=== PATIENT | female | born 1980 | race Hispanic/Latino ===

== ENCOUNTER → 2023-08-04 09:11 | Outpatient (REF) | payer OTHER, SELFPAY ==
[2023-08-04 10:23] LABS: ALT (SGPT) 18 U/L (0-35); AST (SGOT) 16 U/L (14-36); Albumin 3.6 g/dl (3.5-5.0); Alkaline Phosphatase 87 U/L (38-126); Blood Urea Nitrogen 10 mg/dl (7-17); Calcium 9.6 mg/dl (8.4-10.2); Carbon Dioxide 28 mmol/L (22-30); Chloride 98 mmol/L (98-107); Glucose 200 mg/dl (70-99); Potassium 4.2 mmol/L (3.5-5.1); Sodium 134 mmol/L (135-145); Total Bilirubin 0.8 mg/dl (0.2-1.3); eGFR > 60.00
[2023-08-04 11:10] LABS: Glycohemoglobin (HgbA1c) 9.5 % (4.0-5.6)
[2023-08-04 11:32] LABS: Microalbumin, Random Urine 2.7 mg/dl (0.6-1.7); Microalbumin/creatinine Ratio 23.1 mg/g
== END ==
LOC: CLINIC 09:11
PROVIDERS: ATTENDING PHYSICIAN Nurse Practitioner Adult Health
DX: E11.9 Type 2 diabetes mellitus without complications (principal); R80.9 Proteinuria, unspecified
CPT/HCPCS: 36415; 80053; 82043; 82570; 83036

== ENCOUNTER → 2023-12-15 10:16 | Outpatient (REF) | payer OTHER, SELFPAY ==
[2023-12-15 12:10] LABS: ALT (SGPT) 19 U/L (0-35); AST (SGOT) 20 U/L (14-36); Albumin 4.6 g/dl (3.5-5.0); Alkaline Phosphatase 118 U/L (38-126); Blood Urea Nitrogen 14 mg/dl (7-17); Calcium 10.4 mg/dl (8.4-10.2); Carbon Dioxide 25 mmol/L (22-30); Chloride 100 mmol/L (98-107); Glucose 172 mg/dl (70-99); Potassium 4.6 mmol/L (3.5-5.1); Sodium 138 mmol/L (135-145); Total Bilirubin 0.8 mg/dl (0.2-1.3); Total Protein 7.7 g/dl (6.3-8.2); eGFR > 60.00
[2023-12-15 14:02] LABS: Glycohemoglobin (HgbA1c) 10.3 % (4.0-5.6)
== END ==
LOC: CLINIC 10:16
PROVIDERS: ATTENDING PHYSICIAN Nurse Practitioner Adult Health
DX: E11.9 Type 2 diabetes mellitus without complications (principal)
CPT/HCPCS: 80053; 83036

== ENCOUNTER → 2024-03-22 10:30 | Outpatient (REF) | payer OTHER, SELFPAY ==
[2024-03-22 12:13] LABS: ALT (SGPT) 17 U/L (0-35); AST (SGOT) 16 U/L (14-36); Albumin 4.3 g/dl (3.5-5.0); Alkaline Phosphatase 66 U/L (38-126); Blood Urea Nitrogen 15 mg/dl (7-17); Carbon Dioxide 26 mmol/L (22-30); Chloride 102 mmol/L (98-107); Glucose 109 mg/dl (70-99); Potassium 4.5 mmol/L (3.5-5.1); Sodium 140 mmol/L (135-145); Total Bilirubin 0.6 mg/dl (0.2-1.3); Total Protein 6.9 g/dl (6.3-8.2); eGFR > 60.00
[2024-03-22 13:13] LABS: Glycohemoglobin (HgbA1c) 7.4 % (4.0-5.6)
== END ==
LOC: REG 10:30
PROVIDERS: ATTENDING PHYSICIAN Nurse Practitioner Adult Health
DX: E11.9 Type 2 diabetes mellitus without complications (principal)
CPT/HCPCS: 36415; 80053; 83036

== ENCOUNTER 2024-05-06 17:06 | Outpatient (RCR) | payer OTHER, SELFPAY | END 2024-05-06 23:59 | disposition home or self-care (01) | LOC: RPT 17:06 | PROVIDERS: ATTENDING PHYSICIAN Specialist; FAMILY PHYSICIAN Nurse Practitioner Adult Health | DX: M75.01 Adhesive capsulitis of right shoulder (principal); Z73.6 Limitation of activities due to disability | CPT/HCPCS: 97010; 97110; 97140; 97162 ==

== ENCOUNTER 2024-06-05 16:01 | Outpatient (RCR) | payer OTHER, SELFPAY | END 2024-06-05 23:59 | disposition home or self-care (01) | LOC: RPT 16:01 | PROVIDERS: ATTENDING PHYSICIAN Specialist; FAMILY PHYSICIAN Nurse Practitioner Adult Health | DX: M75.01 Adhesive capsulitis of right shoulder (principal); Z73.6 Limitation of activities due to disability | CPT/HCPCS: 97110; 97140 ==

== ENCOUNTER 2024-06-26 15:58 | Outpatient (RCR) | payer OTHER, SELFPAY | END 2024-06-26 23:59 | disposition home or self-care (01) | LOC: RPT 15:58 | PROVIDERS: ATTENDING PHYSICIAN Specialist; FAMILY PHYSICIAN Nurse Practitioner Adult Health | DX: M75.01 Adhesive capsulitis of right shoulder (principal); Z73.6 Limitation of activities due to disability | CPT/HCPCS: 97010; 97110 ==

== ENCOUNTER → 2024-08-02 09:56 | Outpatient (REF) | payer OTHER, SELFPAY ==
[2024-08-02 11:13] LABS: Glycohemoglobin (HgbA1c) 7.6 % (4.0-5.6)
[2024-08-02 12:00] LABS: ALT (SGPT) 18 U/L (0-35); AST (SGOT) 17 U/L (14-36); Albumin 4.8 g/dl (3.5-5.0); Alkaline Phosphatase 96 U/L (38-126); Blood Urea Nitrogen 12 mg/dl (7-17); Calcium 9.8 mg/dl (8.4-10.2); Carbon Dioxide 26 mmol/L (22-30); Chloride 102 mmol/L (98-107); Glucose 128 mg/dl (70-99); HDL Cholesterol 105 mg/dl; LDL Cholesterol, Calculated 150 mg/dl; Potassium 4.6 mmol/L (3.5-5.1); Sodium 136 mmol/L (135-145); Total Bilirubin 0.9 mg/dl (0.2-1.3); Total Cholesterol 274 mg/dl (50-199); Triglyceride 97 mg/dl (10-149); Very Low Density Lipoprotein 19 mg/dl (0-30); eGFR > 60.00
[2024-08-02 12:12] LABS: Microalbumin, Random Urine 2.9 mg/dl (0.6-1.7); Microalbumin/creatinine Ratio 52.1 mg/g
== END ==
LOC: CLINIC 09:56
PROVIDERS: ATTENDING PHYSICIAN Nurse Practitioner Adult Health
DX: E11.9 Type 2 diabetes mellitus without complications (principal); R80.9 Proteinuria, unspecified
CPT/HCPCS: 36415; 80053; 80061; 82043; 82570; 83036

== ENCOUNTER → 2024-11-01 09:18 | Outpatient (REF) | payer OTHER, SELFPAY ==
[2024-11-01 10:29] LABS: ALT (SGPT) 17 U/L (0-35); AST (SGOT) 15 U/L (14-36); Albumin 4.3 g/dl (3.5-5.0); Alkaline Phosphatase 74 U/L (38-126); Blood Urea Nitrogen 16 mg/dl (7-17); Carbon Dioxide 27 mmol/L (22-30); Chloride 106 mmol/L (98-107); Glucose 151 mg/dl (70-99); HDL Cholesterol 80 mg/dl; LDL Cholesterol, Calculated 74 mg/dl; Microalbumin, Random Urine 0.6 mg/dl (0.6-1.7); Microalbumin/creatinine Ratio 10.7 mg/g; Potassium 4.5 mmol/L (3.5-5.1); Sodium 140 mmol/L (135-145); Total Bilirubin 0.6 mg/dl (0.2-1.3); Total Cholesterol 170 mg/dl (50-199); Total Protein 7.4 g/dl (6.3-8.2); Triglyceride 84 mg/dl (10-149); Very Low Density Lipoprotein 16 mg/dl (0-30); eGFR > 60.00
[2024-11-02 12:25] LABS: Glycohemoglobin (HgbA1c) 7.7 % (4.0-5.6)
== END ==
LOC: REG 09:18
PROVIDERS: ATTENDING PHYSICIAN Nurse Practitioner Adult Health
DX: E11.9 Type 2 diabetes mellitus without complications (principal); R80.9 Proteinuria, unspecified; E78.00 Pure hypercholesterolemia, unspecified
CPT/HCPCS: 80053; 80061; 82043; 82570; 83036

== ENCOUNTER → 2025-03-20 13:40 | Outpatient (REF) | payer OTHER, SELFPAY ==
[2025-03-20 14:44] LABS: ALT (SGPT) 19 U/L (0-35); AST (SGOT) 16 U/L (14-36); Albumin 4.7 g/dl (3.5-5.0); Alkaline Phosphatase 92 U/L (38-126); Blood Urea Nitrogen 10 mg/dl (7-17); Calcium 10.4 mg/dl (8.4-10.2); Carbon Dioxide 28 mmol/L (22-30); Chloride 102 mmol/L (98-107); Glucose 147 mg/dl (70-99); Potassium 5.0 mmol/L (3.5-5.1); Sodium 136 mmol/L (135-145); Total Protein 8.1 g/dl (6.3-8.2); eGFR > 60.00
[2025-03-21 08:54] LABS: Glycohemoglobin (HgbA1c) 7.8 % (4.0-5.6)
== END ==
LOC: REG 13:40
PROVIDERS: ATTENDING PHYSICIAN Nurse Practitioner Adult Health
DX: E11.9 Type 2 diabetes mellitus without complications (principal)
CPT/HCPCS: 36415; 80053; 83036

== ENCOUNTER 2025-04-19 16:07 | Emergency (ER) | payer OTHER, SELFPAY ==
[2025-04-19 16:09] VITALS: BP 118/78
--- NOTE | 2025-04-19 17:38 | ED.GENMED ---
History of Present Illness
General
Chief Complaint: Fall
Source: patient
Exam Limitations: none
Time Seen by Provider: 04/19/25 17:25
History of Present Illness
History of Present Illness:
44yoF with a history of type 2 diabetes, hypertension, hyperlipidemia presenting for evaluation of a left ankle injury. Patient fell down the basement steps 1 week ago. She has been having persistent pain and swelling in the left ankle. She has
been walking on the ankle throughout the week but decided to come to the ED because her symptoms were not getting better. No paresthesias.
Phy Exam
General Physical Exam
General Presentation: well appearing and no apparent distress
General age: appears stated age
General Skin: warm and dry
General Habitus: normal
General Mental: alert
ENT Exam
ENT Exam: normocephalic
Pulmonary Exam
Pulmonary Exam: no respiratory distress
Neurological Exam
Neurological Exam: alert
Dayanna Coma Scale
Eye Opening: Spontaneous
Verbal Response: Oriented
Motor Response: Obeys Commands
GCS Total Score: 15
Musculoskeletal Exam
Musculoskeletal Exam: other (L ankle: Diffuse swelling noted to ankle and dorsum of foot with dependent ecchymosis. + Tenderness to lateral malleolus. ROM decreased 2/2 pain. No tenderness to proximal fibula. 2+ DP pulse and sensation intact. )
Skin Exam
Skin Exam: warm/dry
Psychiatric Exam
Psychiatric Exam: normal mood/affect
Course
Orders/Labs/Results
Orders:
Orders
04/19/25 16:15
CR Ankle - Left Min 3 Views Urgent
Comment:
Reason For Exam: pain injury
Foot, Left 3 View [CR Foot - Left Min 3 Views] Urgent
Comment:
Reason For Exam: pain injury
04/19/25 17:25
Splints/Slings/Crut- Treatment ONCE
Location: Left
Type of Splint: Short Leg
04/19/25 17:36
Crutches-Treatment ONCE
Vital Signs
Initial and Last Documented VS:
Initial Vital Signs
Temp Pulse Resp BP Pulse Ox
98.2 F 78 16 118/78 100
04/19/25 16:09 04/19/25 16:09 04/19/25 16:09 04/19/25 16:09 04/19/25 16:09
Last Documented Vital Signs
Temp Pulse Resp BP Pulse Ox
98.2 F 78 16 118/78 100
04/19/25 16:09 04/19/25 16:09 04/19/25 16:09 04/19/25 16:09 04/19/25 17:39
MDM/Problems Addressed
Differential Diagnosis Includes:
44yoF here with L ankle pain after an injury 1 week ago. Swelling and tenderness noted on exam. LLE is neurovascularly intact. Differential diagnosis includes: sprain vs. fracture
X-rays of L foot/ankle obtained which reveal a distal fibular fracture. She was placed in a short leg splint by electronic warfare technician. Neurovascular status unchanged after splint placement. Crutches provided and she was advised to f/u with orthopedics for
further care.
*Pulse Oximetry
SaO2: 100
Oxygen Mode of Delivery: Room air
Patient hypoxic: no
*Critical Care Note
Total Time (30-74mins, 75-104mins- exclusive of procedures): Not Applicable
ED Attending Note
-
Portions of this chart may have been created with voice recognition software.� Occasional wrong word or��sound alike� substitutions may have occurred due to the inherent limitations of voice recognition software.
Discharge Plan
Departure
Patient Disposition: Home (Routine Discharge)
Date of Disposition: 04/19/25
Time of Disposition: 18:00
Patient with high blood pressure during this ER visit?: No
Discharge Problem:
Closed fracture of distal end of left fibula
Instructions: Ankle Fracture ED, Splint care - ED (DC)
Referrals:
Amanuel Tatum MD [Active, Orthopedics]
Stand Alone Forms: Return to Work
Activity Restrictions/Additional Instructions:
Keep splint in place and do not get wet. Use crutches until seen by orthopedics. You may take Tylenol and ibuprofen as needed for pain.
Please call tomorrow to schedule a follow-up appointment with orthopedics.
Interventions
Interventions:
*Risk Screen - Suicide Last Done: 04/19/25 16:09
*General Assessment Last Done: 04/19/25 18:09
*Neglect/Abuse Screening Last Done: 04/19/25 16:09
*ED COVID-19 Vaccine History Last Done: 04/19/25 18:09
*ED Influenza Vaccine History Last Done: 04/19/25 18:09
*Nursing Disposition Last Done: 04/19/25 18:20
ED-Musculoskeletal Assessment Last Done: 04/19/25 18:09
ED- Neurological Assessment Last Done: 04/19/25 18:09
ED-Skin Assessment Last Done: 04/19/25 18:09
Discharge Date and Time
Discharge Date/Time: 04/19/25 18:23
Print Language: SAMI
== END 2025-04-19 18:23 | disposition home or self-care (01) ==
LOC: EMR 16:07
PROVIDERS: EMERGENCY PHYSICIAN Emergency Medicine
DX: S82.832A Other fracture of upper and lower end of left fibula, initial encounter for closed fracture (principal); S90.32XA Contusion of left foot, initial encounter; W10.9XXA Fall (on) (from) unspecified stairs and steps, initial encounter; E11.9 Type 2 diabetes mellitus without complications; E78.5 Hyperlipidemia, unspecified; I10 Essential (primary) hypertension
CPT/HCPCS: 29515; 99283; 73610; 73630

== ENCOUNTER 2025-05-09 10:19 | Emergency (ER) | payer OTHER, SELFPAY ==
[2025-05-09 10:21] VITALS: BP 134/89
[2025-05-09 11:17] VITALS: BMI 29.2
[2025-05-09 11:34] VITALS: BP 134/82
--- NOTE | 2025-05-09 11:40 | ED.GENMED ---
History of Present Illness
General
Chief Complaint: Abdominal Symptoms
Source: patient
Exam Limitations: none
Time Seen by Provider: 05/09/25 10:58
Nursing documentation reviewed up to this point in time: agreed with
History of Present Illness
History of Present Illness:
The patient is a pleasant 44-year-old female with a past medical history of hypertension, hyperlipidemia and non-insulin and diabetes who complains of gradual onset of headache that started yesterday and has been persistent. Patient reports the
pain waxes and wanes in intensity and when intense, causes nausea and vomiting. Patient reports initially the pain was on the left side of her head now it is on the right side of her head. She denies visual changes, weakness, numbness, sore
throat, rash and fever. Patient denies diarrhea. Patient reports she tried Tylenol and vomited up. She has never had a headache like this before. She denies neck pain
Past History
Past History
ED Past Medical History: HTN, Hypercholesterolemia and NIDDM
ED Past Surgical History: Other
Social History
Tobacco: Other
Alcohol: Other
Drug: Other
Personal: Other
Living: with family
Employment: Other
Family History
Family History: Other (No history of subarachnoid hemorrhage according to patient)
Review of Systems
Review of Systems
Allergies reviewed?: Yes
All Other Systems: ROS reviewed and negative except as documented in HPI and ROS
Constitutional: Reports no symptoms
EENT: Reports no symptoms
Respiratory: Reports no symptoms
Cardiac: Reports no symptoms
ABD/GI: Reports nausea and vomiting
: Reports no symptoms
Musculoskeletal: Reports no symptoms
Skin: Reports no symptoms
Neurological: Reports headache
Endocrine: Reports no symptoms
Hematologic/Lymphatic: Reports no symptoms
Psychiatric: Reports no symptoms
Phy Exam
Physical Exam
Physical Exam:
Physical Exam
General: no apparent distress, not acutely ill. Well and nontoxic-appearing
Neck: supple. no meningeal signs. normal psoterior pharynx. No meningismus
Heart: s1/s2 regular rate and rhythm, no murmur. equal radial pulses.
Lungs: no acute respiratory distress. clear bilaterally
Abdomen: normal bowel sounds. not tender. no CVAT
Neuro: alert and oriented. no focal neurological deficits. 5 out of 5 strength in all extremities without drift. Extraocular muscles intact. PERRL, visual torres intact
Skin: no rash
Psychiatric: well kept. interactive and cooperative
Extremities: no edema. no calf tenderness. negative homans. good distal pulses
Course
Orders/Labs/Results
Orders:
Orders
05/09/25 11:38
CT Head W/o Iv Contrast Urgent
Comment:
Reason For Exam: headache
0.9% Sodium Chloride 1000 ml [Nss] 1,000 ml IV BOLUS
Diphenhydramine [Benadryl] 25 mg IV NOW STA
Test Result ONCE
05/09/25 11:39
Prochlorperazine [Compazine] 10 mg IV NOW STA
05/09/25 11:43
Complete Blood Count/With Diff Urgent
Comprehensive Metabolic Panel Urgent
HCG, Serum Qualitative Screen Urgent
Lipase Urgent
Comment: ADD ON
05/09/25 12:13
0.9% Sodium Chloride 1000 ml [Nss] 1,000 ml IV BOLUS
05/09/25 12:14
Add On- LAB Urgent
Tests Added?: lipase
Abnormal Lab Results
05/09/25
11:43
WBC 11.5 H 10^3/uL
(4.8-10.8)
MCV 77.2 L fL
(81.0-99.0)
MCH 26.3 L pg
(27.0-31.0)
Absolute Neuts (auto) 9.4 H 10^3/uL
(1.4-6.5)
Neutrophils % 82.3 H %
(42.2-75.2)
Lymphocytes % 12.9 L %
(20.5-51.1)
Glucose 168 H mg/dl
(70-99)
05/09/25 11:43
05/09/25 11:43
Vital Signs
Initial and Last Documented VS:
Initial Vital Signs
Temp Pulse Resp BP Pulse Ox
98.2 F 85 16 134/89 98
05/09/25 10:21 05/09/25 10:21 05/09/25 10:21 05/09/25 10:21 05/09/25 10:21
Last Documented Vital Signs
Temp Pulse Resp BP Pulse Ox
98.2 F 93 16 108/73 98
05/09/25 10:21 05/09/25 14:00 05/09/25 10:21 05/09/25 14:00 05/09/25 14:00
MDM/Problems Addressed
Differential Diagnosis Includes:
Acute tension headache, acute migraine headache, intracranial mass, subarachnoid bleed
MDM/Problems Addressed:
Patient presents with acute headache, nausea and vomiting
Chronic conditions affecting care: DM
Acute Exacerbation and/or Progression of Chronic Illness:
Given patient's vomiting, I am worried about acute hyperglycemia. Will check blood work
Acute Exacerbation and/or Progression of Chronic Illness: DM
*Radiology
Radiology exam reviewed: radiology read reviewed
*Pulse Oximetry
SaO2: 99
Oxygen Mode of Delivery: Room air
Patient hypoxic: no
*EKG
Interpreted by ED Provider?: NA
*Production Welder Interpretation
Rate: normal
Interpretation: normal
Rhythm: sinus
*Critical Care Note
Total Time (30-74mins, 75-104mins- exclusive of procedures): Not Applicable
Data Reviewed
Review of Other/Old Records Reveals: Labs (Blood work reviewed from 03/20/2025)
Source: patient
Patient Management
Social determinants of health affecting care: Living situation and Strong social support
Escalation/DeEscalation of care consider admission/obs:
Patient continues to look extremely well and comfortable. Clinically there is no sign of meningitis. CT head appears negative. Very unlikely, clinically, to be subarachnoid hemorrhage given that pain has been gradual and patient is fully awake
and looks well and comfortable
ED Attending Note
-
Portions of this chart may have been created with voice recognition software.� Occasional wrong word or��sound alike� substitutions may have occurred due to the inherent limitations of voice recognition software.
Discharge Plan
Departure
Patient Disposition: Home (Routine Discharge)
Date of Disposition: 05/09/25
Time of Disposition: 14:01
Patient with high blood pressure during this ER visit?: No
Condition: Good
Covid-19: Not Applicable
Discharge Problem:
Headache
Instructions: Headache, Adult (DC)
Referrals:
Yodit Fowler, [employer] [Family Provider, Internal Medicine]
Activity Restrictions/Additional Instructions:
Please follow-up with your doctor within 1 week
Return with any severe headache, vision changes, weakness or numbness
Interventions
Interventions:
*Risk Screen - Suicide Last Done: 05/09/25 10:21
*General Assessment Last Done: 05/09/25 11:22
*Neglect/Abuse Screening Last Done: 05/09/25 10:21
*ED- Fall Risk Assessment Last Done: 05/09/25 11:22
*ED COVID-19 Vaccine History Last Done: 05/09/25 11:21
*ED Influenza Vaccine History Last Done: 05/09/25 11:21
FO-Zuzavv-Kkohnwdere Assessment Last Done: 05/09/25 11:23
ED- Neurological Assessment Last Done: 05/09/25 11:24
Discharge Date and Time
Print Language: MACEDONIAN
[2025-05-09 11:51] LABS: Hematocrit 37.6 % (37.0-47.0); Hemoglobin 12.8 g/dL (12.0-16.0); Mean Corp Hgb Conc. 34.0 g/dL (33.0-37.0); Mean Corpuscular Volume 77.2 fL (81.0-99.0); Nucleated Red Blood Cells % 0 %; Platelet Count 335 10^3/uL (130-400); Red Cell Dist. Width 13.5 % (11.5-14.5)
[2025-05-09 12:00] VITALS: BP 117/79
[2025-05-09 12:09] LABS: HCG, Serum Qualitative Screen Negative
[2025-05-09] MEDS: BENADRYL 25 MG IV (12:15)
[2025-05-09] MEDS: COMPAZINE 10 MG IV (12:16)
[2025-05-09 12:18] LABS: ALT (SGPT) 17 U/L (0-35); AST (SGOT) 17 U/L (14-36); Albumin 4.5 g/dl (3.5-5.0); Alkaline Phosphatase 83 U/L (38-126); Blood Urea Nitrogen 12 mg/dl (7-17); Calcium 9.9 mg/dl (8.4-10.2); Carbon Dioxide 24 mmol/L (22-30); Chloride 104 mmol/L (98-107); Estimated Creatinine Clearance > 125 ml/min; Glucose 168 mg/dl (70-99); Potassium 3.8 mmol/L (3.5-5.1); Sodium 135 mmol/L (135-145); Total Protein 7.9 g/dl (6.3-8.2); eGFR > 60.00
[2025-05-09] MEDS: NSS 1000 IV (12:20)
[2025-05-09 12:28] LABS: Lipase 99 U/L (23-300)
[2025-05-09 14:00] VITALS: BP 108/73
== END 2025-05-09 14:50 | disposition home or self-care (01) ==
LOC: EMR 10:19
PROVIDERS: EMERGENCY PHYSICIAN Emergency Medicine; FAMILY PHYSICIAN Nurse Practitioner Adult Health
DX: R51.9 Headache, unspecified (principal); R11.2 Nausea with vomiting, unspecified; I10 Essential (primary) hypertension; E11.9 Type 2 diabetes mellitus without complications; E78.00 Pure hypercholesterolemia, unspecified; Z79.84 Long term (current) use of oral hypoglycemic drugs
CPT/HCPCS: 99284; 96374; 96375; 70450; 80053; 83690; 84703; 85025